=== PATIENT | female | born 1945 | race Caucasian/White ===

== ENCOUNTER → 2017-09-07 | Outpatient (CLI) | payer OTHER ==
[~2017-09-07] VITALS: Ht 154.9 cm; Wt 61.0 kg
[~2017-09-07] MED LIST: AMBIEN10 MG PO; ASPIRIN81 M2 PO; ATENOLOL50 MG PO; CALTRATE PLUS1 EACH PO; CEFTIN250 MG PO; COLACE100 MG PO; COMBIVENT RESPIM4 GM IH; CRESTOR10 MG PO; CYMBALTA30 MG PO; FLONASE16 G1 BOTH NARES; GABAPENTIN300 MG PO; GEMFIBROZIL600 MG PO; GRAPE SEED50 MG PO; LUTEIN20 MG PO; MAGNESIUM400 M1 PO; METAMUCIL PACK3.4 GM PO; METOCLOPRAMIDE10 MG PO; MORPHINE SULFAT15 M1 PO; MULTIPLE VITAM1 EACH PO; OMEGA 3-6-9 CO1 EACH PO; OMEPRAZOLE40 M1 PO; OXYCODONE-ACET1 EACH PO; PROBIOTIC1 EAC4 PO; VITAMIN D31000 UNI2 PO; VITAMIN E1000 UNI1 PO; XANAX0.5 MG PO; ZANAFLEX2 MG PO; ZINC CHELATED50 MG PO; ZOFRAN8 MG PO; ZOLOFT100 MG PO; [UNRECOGNIZED DRUG - OTHER] PO
[2017-09-07 10:16] VITALS: BP 204/79
== END | disposition home or self-care (01) ==
LOC: IVINF 08-24 15:00
DX: M81.0 Age-related osteoporosis without current pathological fracture (principal)
CPT/HCPCS: 96365; J3489